=== PATIENT | male | born 1955 | race Caucasian/White ===

== ENCOUNTER 2016-11-28 11:15 | Emergency (ER) | payer BC ==
[2016-11-28] MEDS ORDERED: SODIUM CHLORIDE 0.9% 1000ML 1,000 ML IVS ONE (11:24)
--- NOTE | 2016-11-28 11:24 | ED.PDOC ---
History of Present Illness - General Chief Complaint: Neuro Symptoms/Deficits Stated Complaint: vertigo Time Seen by Provider: 11/28/16 11:23 Source: patient, RN notes reviewed, family Additional Information: Pt states he woke up this am at 0830 and felt dizziness and nausea. His symptoms have not subsided and he states positional changes do not alter his symptoms. 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 Pt went to urgent care and sent to ED given his past history and the need to assess for possible vertebrobasilar ischemia. - History of Present Illness Timing/Duration: 4-6 hours Severity: moderate Improving Factors: nothing Worsening Factors: movement - getting up from seated position Associated Symptoms: nausea/vomiting - dry heaves, other - nausea Allergies/Adverse Reactions: Allergies Nitroglycerin Adverse Reaction (Verified 11/28/16 11:44) Home Medications: Ambulatory Orders Aspirin [(None)] 162.5 mg PO BEDTIME 11/28/16 Atorvastatin Calcium [Lipitor] 40 mg PO BEDTIME 11/28/16 Bimatoprost 0.01% Ophth [Lumigan Ophth Cindy] 0.01 % OP BEDTIME 11/28/16 Brimonidine Tartrate-Timolol M [Combigan 0.2-0.5 %] 1 drop OP BID 11/28/16 Brinzolamide-Brimonidine Tartr [Simbrinza] 1 andie OP BID 11/28/16 Cholecalciferol [Vitamin D] 1,000 unit PO DAILY 11/28/16 Clopidogrel Bisulfate [Plavix] 75 mg PO DAILY 11/28/16 Cyanocobalamin [Vitamin B 12] 250 mcg PO DAILY 11/28/16 Folic Acid 800 mcg PO DAILY 11/28/16 Multiple Minerals W/ Vitamins [Citracal Plus] 2 tab PO BEDTIME 11/28/16 Phytonadione [Vitamin K] 100 mcg PO DAILY 11/28/16 Pioglitazone HCl [Actos] 15 mg PO BEDTIME 11/28/16 Saxagliptin HCl [Onglyza] 5 mg PO DAILY 11/28/16 Vitamin E [E-400] 400 unit PO DAILY 11/28/16 Review of Systems - Review of Systems Constitutional: States: no symptoms reported EENTM: States: no symptoms reported Respiratory: States: no symptoms reported Cardiology: States: no symptoms reported Gastrointestinal/Abdominal: States: no symptoms reported Genitourinary: States: no symptoms reported Musculoskeletal: States: no symptoms reported Skin: States: no symptoms reported Neurological: States: see HPI, other - constant dizziness with nausea since awaking Endocrine: States: see HPI - - h/o DM Hematologic/Lymphatic: States: no symptoms reported Past Medical History (General) - Patient Medical History Hx Cardiac Disorders: Yes Hx Diabetes: Yes Surgical History: angioplasty, coronary bypass surgery, other - gastric sleeve Family Medical History - Family History Grandparents Family History: Unknown Physical Exam - Physical Exam General Appearance: Alert, Comfortable Eye Exam: bilateral normal - no nystagmus. Pupils equal/reactive and EOM equal. ENT Exam: normal ENT inspection, TMs normal, pharynx normal Neck: non-tender, full range of motion, supple, other - no carotid bruits appreciated Respiratory: lungs clear, normal breath sounds, no respiratory distress Cardiovascular/Chest: normal peripheral pulses, regular rate, rhythm, no murmur Gastrointestinal/Abdominal: non tender, soft Extremities Exam: non-tender, normal range of motion, no evidence of injury Mental Status: alert, oriented x 3 affiliate marketing specialist Exam: normal hearing, normal speech, PERRL, other - no tongue deviation or facial droop. Negative [place]. Coordination/Gait: abnormal gait Motor/Sensory: no motor deficit, no sensory deficit Skin Exam: normal color Progress - Progress Progress: 11/28/16 12:16 Given PMH/Comorbidities and history I am concerned for possible vertebrobasilar ischemia/infarct. Will obtain CT Head to rule out gross abnormality but this is a sub-optimal study. This patient warrants an MRI/MRA of the brain which is not available at this facility. 11/28/16 12:44 Will transfer patient to [facility] for further evaluation. - Results/Orders Results/Orders: 11/28/16 11:33 Temperature 97 F L Pulse Rate [L 57 L Arm] Respiratory 20 Rate Blood Pressure 146/78 [L Arm] O2 Sat by Pulse 99 Oximetry 11/28/16 11:24 Sodium Chloride 0.9% 1000ML [Ns 1000 ml] 1,000 ml IVS ONCE 11/28/16 11:30 EKG STAT 11/28/16 11:49 Head [CT] Stat Laboratory Results - last 24 hr 11/28/16 11/28/16 11:32 11:32 WBC 6.9 RBC 4.76 Hgb 15.4 Hct 45.9 MCV 96.4 H MCH 32.4 H MCHC 33.6 RDW 14.5 Plt Count 168 MPV 8.5 Absolute Neuts (auto) 5.80 Absolute Lymphs (auto) 0.60 L Absolute Monos (auto) 0.50 Absolute Eos (auto) 0.00 Absolute Basos (auto) 0.10 Neutrophils % 83.2 H Lymphocytes % 9.0 L Monocytes % 6.5 Eosinophils % 0.6 L Basophils % 0.7 Sodium 141 Potassium 4.5 Chloride 105 Carbon Dioxide 28 Anion Gap 12.5 BUN 15 Creatinine 1.17 BUN/Creatinine Ratio 12.8 Random Glucose 174 H Serum Osmolality 286.3 Calcium 9.3 Total Bilirubin 0.9 AST 20 ALT 17 Alkaline Phosphatase 51 Creatine Kinase 108 CK-MB (CK-2) 1.1 CK-MB (CK-2) % Not Reportable Troponin I 0.02 Serum Total Protein 6.9 Albumin 4.2 Globulin 2.7 Albumin/Globulin Ratio 1.6 - EKG/XRAY/CT EKG: Ryan - 59 bpm, Sinus, no ST T wave changes CT: Head non-contrast - no acute intracranial findings. Rec MRI to assess cva Stroke Information - Onset of Symptoms Symptoms of Stroke: Vertigo Stroke Onset of Symptoms Date: 11/28/16 Stroke Onset of Symptoms Time: 08:30 - present upon waking up therefore unclear start time Departure - Departure Clinical Impression: Vertigo Vertigo, central Qualifiers: Laterality: unspecified laterality Qualified Code(s): H81.49 - Vertigo of central origin, unspecified ear Time of Disposition: 12:55 Disposition: Transfer to Hospital Condition: Fair Referrals: Bull Goodman MD [Primary Care Provider] - 1-5 Days Home Medications: Ambulatory Orders Aspirin [(None)] 162.5 mg PO BEDTIME 11/28/16 Atorvastatin Calcium [Lipitor] 40 mg PO BEDTIME 11/28/16 Bimatoprost 0.01% Ophth [Lumigan Ophth Cindy] 0.01 % OP BEDTIME 11/28/16 Brimonidine Tartrate-Timolol M [Combigan 0.2-0.5 %] 1 drop OP BID 11/28/16 Brinzolamide-Brimonidine Tartr [Simbrinza] 1 andie OP BID 11/28/16 Cholecalciferol [Vitamin D] 1,000 unit PO DAILY 11/28/16 Clopidogrel Bisulfate [Plavix] 75 mg PO DAILY 11/28/16 Cyanocobalamin [Vitamin B 12] 250 mcg PO DAILY 11/28/16 Folic Acid 800 mcg PO DAILY 11/28/16 Multiple Minerals W/ Vitamins [Citracal Plus] 2 tab PO BEDTIME 11/28/16 Phytonadione [Vitamin K] 100 mcg PO DAILY 11/28/16 Pioglitazone HCl [Actos] 15 mg PO BEDTIME 11/28/16 Saxagliptin HCl [Onglyza] 5 mg PO DAILY 11/28/16 Vitamin E [E-400] 400 unit PO DAILY 11/28/16 Additional Instructions: Transfer to [facility] for further evaluation. Transfer to Outside Facility - Transfer Information Accepting Provider:: [facility] ER via Dr. Butcher Reason for Transfer: specialized care not available - no access to MRI/MRA in ED setting. This patient may have a vertebrobasilar stroke/ischemia.
[2016-11-28 12:44] VITALS: TEMP 97
--- NOTE | 2016-11-28 12:48 | CT ---
EXAM: Head CLINICAL INDICATION: 61-year-old male with vertigo and vasculopathic? Central etiology. COMPARISON: None. TECHNIQUE: CT brain without contrast. This exam was performed according to our departmental dose optimization program which includes use of automated exposure control, adjustment of the mA and/or kV according to patient size and/or use of iterative reconstruction technique. FINDINGS: Mild foci of patchy hypoattenuation are present in a subcortical and periventricular deep white matter distribution, nonspecific; however, most likely represent small vessel ischemic disease, age indeterminate. The ventricles, sulci, and cisterns are symmetric and unremarkable. The cisneros-white matter differentiation is preserved. There is no mass effect, midline shift, intra- or extra-axial fluid collection/acute hemorrhage. The osseous structures are unremarkable. The paranasal sinuses and mastoid air cells are clear. IMPRESSION: 1. No acute intracranial abnormalities. Nonspecific, mild white matter change most likely small vessel ischemic disease, age indeterminate. 2. CT is insensitive for early evaluation of acute stroke. If there is clinical concern for acute ischemia, an MRI may be considered. Electronically signed by: Laura Willoughby MD 11/28/2016 12:47 PM CDT
[2016-11-28 13:11] VITALS: BP 129/86
[2016-11-28 14:22] VITALS: O2SAT 100
== END 2016-11-28 13:35 | disposition short-term general hospital (02) ==
LOC: ER 11:15
DX: H81.49 Vertigo of central origin, unspecified ear (principal); E11.9 Type 2 diabetes mellitus without complications; Z95.1 Presence of aortocoronary bypass graft; Z98.61 Coronary angioplasty status; Z79.82 Long term (current) use of aspirin; Z79.899 Other long term (current) drug therapy; Z88.8 Allergy status to other drugs, medicaments and biological substances; Z98.84 Bariatric surgery status

== ENCOUNTER → 2017-02-23 | Outpatient (CLI) | payer BC | END | disposition home or self-care (01) | LOC: GMAJ 17:22 | PROVIDERS: ATTEND Family Medicine | DX: Z12.5 Encounter for screening for malignant neoplasm of prostate (principal) ==

== ENCOUNTER → 2017-02-25 | Outpatient (CLI) | payer BC ==
--- NOTE | 2017-02-26 16:33 | RAD ---
EXAM DESCRIPTION: Fingers,Left CLINICAL HISTORY: 61 years Male, MASS OF SKIN COMPARISON: None. FINDINGS: Three views of the left middle finger demonstrate phalanges and metacarpals to be intact. A destructive change or other abnormality noted. A distinct soft tissue mass is not identified. No unusual calcifications or foreign bodies noted. IMPRESSION: Normal-appearing left third digit Electronically signed by: Jimmy Andujar MD 02/26/2017 4:32 PM CDT
== END | disposition home or self-care (01) ==
LOC: RAD 14:09
PROVIDERS: ATTEND Orthopaedic Surgery
DX: R22.9 Localized swelling, mass and lump, unspecified (principal)

== ENCOUNTER → 2017-03-16 | Outpatient (CLI) | payer BC | END | disposition home or self-care (01) | LOC: LAB.O 10:43 | PROVIDERS: ATTEND Orthopaedic Surgery | DX: Z01.818 Encounter for other preprocedural examination (principal) ==

== ENCOUNTER 2017-03-30 05:41 | Day surgery (SDC) | payer BC ==
--- NOTE | 2017-03-29 13:29 | HP ---
CHIEF COMPLAINT: Left third digit cyst. HISTORY OF PRESENT ILLNESS: Mr. Tamayo is a 62-year-old male with a history of swelling at the distal interphalangeal joint of the left third finger. He has it there for quite some time and says he intermittently will pop it himself and he does get some fluid out of it. He denies any radiation of pain and denies any neurologic symptoms. Because of the chronic and ongoing nature of it with local irritation, he has requested excision. After discussing the risks, benefits and alternatives to that, the patient has given informed consent. PAST SURGICAL HISTORY: 1. Cardiac stent placement. 2. Gastric sleeve. 3. Appendectomy. MEDICATIONS: 1. Vitamins. 2. Plavix. 3. Lipitor. 4. Onglyza. 5. Pioglitazone. 6. Combigan. 7. Lumigan. 8. Folate. 9. Aspirin. ALLERGIES: NITROGLYCERIN. CODE STATUS: Full code. IMMUNIZATIONS: Up to date. SOCIAL HISTORY: The patient does not drink, smoke or use any illicit drugs. FAMILY HISTORY: None pertinent to today's complaint. REVIEW OF SYSTEMS: Negative except as indicated in the History of Present Illness. PHYSICAL EXAMINATION: VITAL SIGNS: Blood pressure 130/79. Pulse 60. Height 5'4". Weight 185. MENTAL STATUS: The patient is awake, alert, and is able to give a good history and participate in the physical. The patient is oriented to person, place and time. SKIN: Normal tone and turgor. MUSCULOSKELETAL: He has a small cystic mass arising from the distal interphalangeal joint on the radial aspect of the third digit. There is no significant erythema. He has no current drainage. He maintains full range of motion in the digit. Sensation is intact. It is warm and well perfused. ASSESSMENT: 1. Cyst. PLAN: The plan at this point is for excision. We have discussed the risks, benefits, and alternatives to that and the patient has given informed consent. #[id number] [facility]
[2017-03-30] MEDS ORDERED: SODIUM CHL 0.9% 100ML MINI-BAG 100 ML IVPB ONE (05:46)
[2017-03-30] MEDS: LACTATED RINGERS 1,000 ML ONE (06:20)
[2017-03-30] MEDS: ceFAZolin SODIUM 1 GM VIAL ONE ×2 (08:00→08:28)
[2017-03-30] MEDS: LIDOCAINE 1% 50 ML VIAL INJ ONE (08:12)
[2017-03-30] MEDS: BUPIVACAINE 0.25% INJ 30 ML VIAL INJ ONE (08:12)
[2017-03-30] MEDS: VANCOMYCIN HCL INJ 1,000 MG VIAL IVPB ONE (08:28)
[2017-03-30] MEDS ORDERED: LIDOCAINE 1% 10 ML VIAL INJ ONE (10:00)
[2017-03-30] MEDS ORDERED: PROPOFOL 200 MG/20 ML VIAL IV ONE (10:00)
[2017-03-30 10:37] VITALS: BP 143/81; TEMP 97; O2SAT 100
--- NOTE | 2017-03-31 09:22 | OP ---
DATE OF PROCEDURE: 03/30/17 PREOPERATIVE DIAGNOSIS: 1. Ganglion cyst at the distal interphalangeal joint of the third digit. POSTOPERATIVE DIAGNOSIS: 1. Ganglion cyst at the distal interphalangeal joint of the third digit. PROCEDURE: 1. Cyst excision. SURGEON: Kenneth Flores MD. MACHINE SILVER STRIPPER: Yan Tomas CST, -C. ANESTHESIA: Local with sedation. COMPLICATIONS: None. FINDINGS: Ganglion cyst at the distal interphalangeal joint of the third digit. INDICATION: has a history of a cyst at the distal interphalangeal joint. He said he had this going on for quite some time and although it caused minimal discomfort, he did often pick at it. He requested excision of the cyst because of the ongoing nature of it. After discussing the risks, benefits and alternatives to that he has given informed consent. PROCEDURE: The patient was brought to the Operating Room and placed in the supine position. Local anesthetic was injected within the digit and the arm was sterilely prepped and draped. After prepping and draping, an incision was made directly over the cyst and blunt dissection was carried down to the base of the cyst. It was sharply transected and Bovie cautery was used to obliterate the stalk of the cyst. After that, the wound was irrigated and closed with Nylon suture. Sterile dressing was placed. The patient was taken back to the Day Surgery Unit. POSTOPERATIVE INSTRUCTIONS: He will followup with us in two days for dressing removal. #[id number] [facility]WORK[facility]
== END 2017-03-30 09:15 | disposition home or self-care (01) ==
LOC: AMB 05:41
PROVIDERS: ATTEND Orthopaedic Surgery
DX: M67.442 Ganglion, left hand (principal); I25.10 Atherosclerotic heart disease of native coronary artery without angina pectoris; E78.5 Hyperlipidemia, unspecified; E11.9 Type 2 diabetes mellitus without complications; K21.9 Gastro-esophageal reflux disease without esophagitis; E66.9 Obesity, unspecified; G47.30 Sleep apnea, unspecified; Z95.1 Presence of aortocoronary bypass graft; Z98.84 Bariatric surgery status; Z88.8 Allergy status to other drugs, medicaments and biological substances; Z79.02 Long term (current) use of antithrombotics/antiplatelets; Z79.82 Long term (current) use of aspirin; Z79.899 Other long term (current) drug therapy
CPT/HCPCS: 01810; 26160; 36416; 82948; J0690; J3370; J3490; J7050; J7120

== ENCOUNTER → 2017-04-30 | Outpatient (CLI) | payer BC | END | disposition home or self-care (01) | LOC: LAB.O 09:46 | DX: K90.0 Celiac disease (principal) ==

== ENCOUNTER → 2019-09-06 | Outpatient (CLI) | payer BC | LOC: GMAJ 10:57 | PROVIDERS: ATTEND Family Medicine | DX: Z12.5 Encounter for screening for malignant neoplasm of prostate (principal); E11.9 Type 2 diabetes mellitus without complications; I10 Essential (primary) hypertension ==